=== PATIENT | female | born 1950 | race Caucasian/White ===

== ENCOUNTER → 2016-12-18 | Outpatient (CLI) | payer BC ==
--- NOTE | 2016-12-21 14:37 | CR ---
EXAM DATE: 12/18/16 PATIENT'S AGE: 66 Patient: MILTON HERNANDEZ Facility: [place], [place] Site . Site : 1950 Study: XRay Spine Lumbar [id number]/18/2016 11:33:29 AM Ordering Physician: Song Soria Final Report: INDICATION: Low back pain. TECHNIQUE: Lumbar spine 2 view. COMPARISON: Lumbar spine September 29, 2016. FINDINGS: Posterior spinal fusion changes of L3 through L5 show no evidence of complication. Alignment is unchanged. Stable appearing mild to moderate multilevel degenerative changes. No additional osseous abnormality. Paraspinal soft tissues as imaged are unremarkable. IMPRESSION: No evidence of hardware complication. Dictated by Indio Eid MD @ Dec 21 2016 1:03AM (Electronic Signature) Report Signed by Proxy and Original Signed Document filed in the Medical Record. JESUS
== END ==
LOC: MW.DI 11:06
PROVIDERS: ATTEND Neurological Surgery
DX: M54.5 Low back pain (principal)
CPT/HCPCS: 72100; 72100-26

== ENCOUNTER 2022-12-26 15:12 | Emergency (ER) | payer MEDICARE, OTHER ==
[2022-12-26] MEDS ORDERED: HYDROmorphone 1 MG/ML Syringe IM ONE (17:27)
[2022-12-26] MEDS ORDERED: Ketorolac 30 MG/ML SDV IM ONE (17:28)
== END 2022-12-26 19:33 | disposition home or self-care (01) ==
LOC: MW.ED 15:12
DX: M54.50 Low back pain, unspecified (principal)
CPT/HCPCS: 72131; 72192; 96372; 99283; J1170; J1885

== ENCOUNTER 2023-02-23 12:19 | Emergency (ER) | payer MEDICARE, OTHER | END 2023-02-23 16:47 | disposition home or self-care (01) | LOC: MW.ED 12:19 | DX: M47.816 Spondylosis without myelopathy or radiculopathy, lumbar region (principal); M62.830 Muscle spasm of back; Z86.16 Personal history of COVID-19 | CPT/HCPCS: 99283 ==